=== PATIENT | female | born 1980 | race Caucasian/White ===

== ENCOUNTER → 2021-04-25 | Outpatient (CLI) | payer BC ==
[~2021-04-25] MED LIST: BCP; ERGO50000; IBUP400 PO; Verotin-Gr Cap1 EACH PO
== END | disposition home or self-care (01) ==
LOC: LAB 14:57 → LAB SHORT 14:57
DX: D22.71 Melanocytic nevi of right lower limb, including hip (principal)
CPT/HCPCS: 88305

== ENCOUNTER → 2024-07-17 | Outpatient (CLI) | payer BC | END | disposition home or self-care (01) | LOC: LAB 08:23 → LAB SHORT 08:23 | DX: R30.0 Dysuria (principal) | CPT/HCPCS: 87086 ==